=== PATIENT | female | born 1980 | race Caucasian/White ===

== ENCOUNTER 2016-07-31 23:18 | Emergency (ER) | payer SELFPAY ==
[2016-07-31 23:32] VITALS: BP 122/69
[2016-08-01] MEDS ORDERED: Ondansetron ODT TAB* 4 MG PO ONE (00:30)
[2016-08-01] MEDS ORDERED: Acetaminophen TAB* 325 MG PO ONE (00:31)
[2016-08-01] MEDS ORDERED: Ibuprofen TAB* 600 MG PO ONE (00:31)
--- NOTE | 2016-08-01 00:49 | ED ---
Latisha Mckoy Adam, scribed for Talib Franklin MD on 08/01/16 at 0033 . Influenza-Like Illness - HPI Summary HPI Summary: A 35 y/o female presents to the ED c/o viral symptoms that started yesterday. Her symptoms include headache, body aches, chills, and nausea. She denies diarrhea, vomiting, cough, or symptoms. PMHx includes asthma. FHx is positive for diabetes. Patient smokes cigarettes. - History of Current Complaint Chief Complaint: EDFluSymptoms Time Seen by Provider: 08/01/16 00:24 Hx Obtained From: Patient Onset/Duration: Gradual Onset Severity: Moderate Associated Signs & Symptoms: Myalgia, Headache - Allergy/Home Medications Allergies/Adverse Reactions: Allergies Allergy/AdvReac Type Severity Reaction Status Date / Time Penicillins Allergy Mild Rash Verified 06/12/16 08:44 PMH/Surg Hx/FS Hx/Imm Hx Endocrine/Hematology History: Denies: Hx Diabetes Cardiovascular History: Denies: Hx Congestive Heart Failure, Hx Hypertension Respiratory History: Reports: Hx Asthma History: Denies: Hx Renal Disease Musculoskeletal History: Reports: Hx Back Problems - Immunization History Date of Influenza Vaccine: fall 2012 Infectious Disease History: No Infectious Disease History: Denies: Traveled Outside the [place] in Last 30 Days - Family History Known Family History: Positive: Diabetes - Social History Occupation: Employed Full-time Alcohol Use: None Substance Use Type: Reports: None Hx Tobacco Use: Yes Smoking Status (MU): Light Every Day Tobacco Smoker Review of Systems Positive: Chills Eyes: Negative ENT: Negative Cardiovascular: Negative Respiratory: Negative Gastrointestinal: Negative Genitourinary: Negative Positive: no symptoms reported Positive: Myalgia - Body aches Skin: Negative Positive: Headache Psychological: Normal All Other Systems Reviewed And Are Negative: Yes Physical Exam - Summary Physical Exam Summary: General: Mildly ill, alert HEENT: Moist mucosa, No pharyngeal redness Neck: soft, supple, no adenopathy, no edema, no nuchal rigidity, full ROM in neck Heart: S1, S2, RRR, no murmurs, rubs, or gallops Lungs: Clear to auscultation, breathing comfortable, no wheezes or rales Abdominal: Soft, flat, nontender Extremities: No edema, no calf tenderness Neuro: Alert and oriented x 3 Psych: Logical, coherent Vital Signs On Initial Exam: Initial Vitals Temp Pulse Resp BP Pulse Ox 99.2 F 89 18 122/69 96 07/31/16 23:27 07/31/16 23:27 07/31/16 23:27 07/31/16 23:27 07/31/16 23:27 Diagnostics - Vital Signs Vital Signs Temp Pulse Resp BP Pulse Ox 07/31/16 23:27 99.2 F 89 18 122/69 96 - Laboratory Lab Statement: Any lab studies that have been ordered have been reviewed, and results considered in the medical decision making process. Flu Symptom Course/Dx - Course Assessment/Plan: About 24 hours patient has had viral syndrome with aches, myalgia, and chills. It was slow onset and does not involve meningeal signs or symptoms. There is no focal signs of bacterial infection such as pneumonia. Influenza is possible and she is still within the treatment window. We will swab her and she will start Tamiflu in the morning should it come back positive. She also needs a note for work as she is an employee of [employer]. Otherwise we will supportively treat and she will return for any worsening. - Diagnoses Differential Diagnosis/HQI/PQRI: Positive: Influenza, Pneumonia, RSV, Upper Respiratory Infection Provider Diagnoses: Viral syndrome Discharge - Discharge Plan Condition: Fair Disposition: HOME Prescriptions: Oseltamivir CAP* [Tamiflu CAP*] 75 mg PO BID #10 cap Patient Education Materials: Viral Syndrome (ED) Forms: *Work Release Referrals: [facility] [place] [facility]IAN REFERRAL [Outside] No Primary Care Phys,NOPCP [Primary Care Provider] - The documentation as recorded by the Latisha smith Adam accurately reflects the service I personally performed and the decisions made by me, Talib Franklin MD.
== END 2016-08-01 01:02 | disposition home or self-care (01) ==
LOC: ED 23:18
DX: R51 Headache (principal); M79.1 Myalgia; F17.210 Nicotine dependence, cigarettes, uncomplicated
CPT/HCPCS: 99282; A9270-GY

== ENCOUNTER 2016-08-01 12:15 | Emergency (ER) | payer SELFPAY ==
[2016-08-01 14:57] VITALS: BP 117/71
== END 2016-08-01 17:40 | disposition left against medical advice (07) ==
LOC: ED 12:15
DX: M54.9 Dorsalgia, unspecified (principal); R07.81 Pleurodynia; Z88.0 Allergy status to penicillin; Z53.21 Procedure and treatment not carried out due to patient leaving prior to being seen by health care provider
CPT/HCPCS: 99281

== ENCOUNTER 2017-06-11 15:43 | Emergency (ER) | payer SELFPAY ==
[2017-06-11] MEDS ORDERED: Ibuprofen TAB* 800 MG PO ONE (16:53)
[2017-06-11 17:19] VITALS: BP 121/81
--- NOTE | 2017-06-11 17:41 | ED ---
Back Pain - HPI Summary HPI Summary: Pt here w/ LBP x 1 week (started last Saturday). 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 Worse the following day (Saturday) so called out of work. 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 Worse Saturday so went to [facility] - was rx'd norco which she took w/ minimal relief. Admits she was advised to take NSAID's however she hasn't taken any yet as she does not like to take pills/meds in general. Has been resting back past few days and getting better/back to baseline of initial pain but does admit it's worse as day goes on when she tries to perform activities. Pain is aching and focal to back upon waking - radiates around to lateral thigh with initial activities and as she continues to push herself, pain radiates down into anterior thigh. Denies numbness, tingling, weakness. States she's here for a note for work today as she can't work like this. No PCP. - History of Current Complaint Chief Complaint: EDBackInjuryPain Stated Complaint: BACK PAIN Time Seen by Provider: 06/11/17 16:16 Hx Obtained From: Patient Pain Intensity: 4 Pain Scale Used: 0-10 Numeric - Allergies/Home Medications Allergies/Adverse Reactions: Allergies Allergy/AdvReac Type Severity Reaction Status Date / Time Penicillins Allergy Mild Rash Verified 06/11/17 15:48 PMH/Surg Hx/FS Hx/Imm Hx Previously Healthy: Yes Endocrine/Hematology History: Denies: Hx Anticoagulant Therapy, Hx Diabetes, Autoimmune Disease Cardiovascular History: Denies: Hx Congestive Heart Failure, Hx Hypertension Respiratory History: Reports: Hx Asthma History: Denies: Hx Renal Disease Musculoskeletal History: Reports: Hx Back Problems - recurrent back issues - multiple falls from horses - multiple images - Immunization History Date of Influenza Vaccine: fall 2012 Immunizations Up to Date: Yes Infectious Disease History: No Infectious Disease History: Denies: Traveled Outside the [place] in Last 30 Days - Family History Known Family History: Positive: Diabetes - Social History Occupation: Employed Part-time - medical aid Lives: With Family Alcohol Use: None Hx Substance Use: No Substance Use Type: Reports: None Hx Tobacco Use: Yes Smoking Status (MU): Current Every Day Smoker Amount Used/How Often: 1 PPD Review of Systems Constitutional: Negative Negative: Fever, Chills, Fatigue Eyes: Negative Negative: Photophobia, Blurred Vision Cardiovascular: Negative Negative: Chest Pain Respiratory: Negative Negative: Shortness Of Breath Gastrointestinal: Negative Negative: Abdominal Pain, Vomiting, Diarrhea Negative: incontinence Positive: Arthralgia, Myalgia Skin: Negative Neurological: Negative Psychological: Normal All Other Systems Reviewed And Are Negative: Yes Physical Exam Triage Information Reviewed: Yes Vital Signs On Initial Exam: Initial Vitals Temp Pulse Resp BP Pulse Ox 98.2 F 88 18 120/82 100 06/11/17 15:44 06/11/17 15:44 06/11/17 15:44 06/11/17 15:44 06/11/17 15:44 Vital Signs Reviewed: Yes Appearance: Positive: Well-Appearing, No Pain Distress, Well-Nourished Skin: Positive: Warm, Dry - no erythema, no ecchymosis, no lesions Head/Face: Positive: Normal Head/Face Inspection Eyes: Positive: EOMI ENT: Positive: Hearing grossly normal Neck: Positive: Supple Respiratory/Lung Sounds: Positive: Breath Sounds Present Cardiovascular: Positive: RRR, Pulses are Symmetrical in both Upper and Lower Extremities. Negative: Leg Edema Left, Leg Edema Right Musculoskeletal: Positive: Strength/ROM Intact, Pain @ - Lt QL TTP - spinous pp NTTP; (-) SLR Neurological: Positive: Normal, Sensory/Motor Intact - 5/5 in LE's and equal B/L , Alert, Oriented to Person Place, Time, CN Intact II-III, Reflexes Intact Psychiatric: Positive: Other - somewhat blunted but otherwise appropriate mood - [place]ine Coma Scale Coma Scale Total: 15 Diagnostics - Vital Signs Vital Signs Temp Pulse Resp BP Pulse Ox 06/11/17 17:18 97.7 F 81 17 121/81 99 06/11/17 15:44 98.2 F 88 18 120/82 100 - Laboratory Lab Statement: Any lab studies that have been ordered have been reviewed, and results considered in the medical decision making process. Back Pain Course/Dx - Course Course Of Treatment: Images were not ordered as pt reports improvement of pain since resting, has not tried NSAID'S and has had multiple low back/hip/pelvic XR /CT's in the past couple of years. XR will not change course of tx today and pt has not s/sx of cauda equina, nerve compression, etc. Advised care as in d/c and close f/u. Expressed the importance of establishing w/ PCP - provided w/ referral line and also recommended [facility] if she is still unable to establish w/ PCP. She reports she's [facility] past and knows how to make an appt there, etc. Reviewed danger s/sx of when to return to ED. Pt agrees w/ plan. - Diagnoses Provider Diagnoses: Low back strain, Lumbar radiculopathy Discharge - Discharge Plan Condition: Stable Disposition: HOME Prescriptions: Cyclobenzaprine TAB* [Flexeril 10 MG TAB*] 10 mg PO TID PRN #15 tab PRN Reason: Pain Ibuprofen TAB* [Motrin TAB* 600 MG] 600 mg PO Q6H PRN #20 tab PRN Reason: Pain Patient Education Materials: Low Back Strain (ED), Lumbar Radiculopathy (ED) Forms: *Work Release Referrals: [facility] [place] [facility]IAN REFERRAL [Outside] Additional Instructions: You appear to have a low back muscle strain also causing nerve pain. This has been treated here today with anti-inflammatory pain medication (IBUPROFEN) and a muscle relaxer was also sent to your pharmacy. You may also try acetaminophen 650mg every 6 hours for pain if ibuprofen alone does not help. Rest, ice alternating with heat, gentle stretches and topical analgesics such as biofreeze , bengay, etc may reduce pain. Please follow-up with a PCP in 1-2 weeks as you may benefit from physical therapy. If pain does not improve, you may require further imaging. Call tomorrow to establish with a PCP. *If you develop skin changes, numbness, tingling, weakness or change in bowel/ bladder habits, return to ED
== END 2017-06-11 17:21 | disposition home or self-care (01) ==
LOC: ED 15:43
DX: S33.5XXA Sprain of ligaments of lumbar spine, initial encounter (principal); M54.16 Radiculopathy, lumbar region; F17.210 Nicotine dependence, cigarettes, uncomplicated; Z88.0 Allergy status to penicillin; J45.909 Unspecified asthma, uncomplicated; X50.3XXA Overexertion from repetitive movements, initial encounter; Y93.89 Activity, other specified; Y92.9 Unspecified place or not applicable
CPT/HCPCS: 99282; A9270-GY

== ENCOUNTER 2018-04-04 20:45 | Emergency (ER) | payer SELFPAY ==
[2018-04-04] MEDS ORDERED: predniSONE TAB* 20 MG PO ONE (22:07)
[2018-04-04] MEDS ORDERED: Ketorolac INJ* 60 MG/2 ML VIAL IM ONE (22:07)
--- NOTE | 2018-04-04 22:09 | ED ---
Back Pain - HPI Summary HPI Summary: Patient complains of left lower gluteus pain radiating down left leg 3 days. Denies trauma, urinary retention, incontinence, loss of function or sensation distally. History of sciatica. Nuys any other pain, symptoms, injury. - History of Current Complaint Chief Complaint: EDBackInjuryPain Stated Complaint: LOW BACK INJURY Time Seen by Provider: 04/04/18 21:42 Hx Obtained From: Patient Onset/Duration: Sudden Onset Onset/Duration: Started Days Ago Timing: Constant Back Pain Location: Is Discrete @, Radiates To Severity Initially: Moderate Severity Currently: Moderate Pain Intensity: 5 Pain Scale Used: 0-10 Numeric Character: Throbbing Aggravating Symptom(s): Movement, Walking Alleviating Symptom(s): Rest Associated Signs And Symptoms: Positive: Negative - Allergies/Home Medications Allergies/Adverse Reactions: Allergies Allergy/AdvReac Type Severity Reaction Status Date / Time Penicillins Allergy Rash Verified 04/04/18 21:02 PMH/Surg Hx/FS Hx/Imm Hx Endocrine/Hematology History: Denies: Hx Anticoagulant Therapy, Hx Diabetes Cardiovascular History: Denies: Hx Congestive Heart Failure, Hx Hypertension Respiratory History: Reports: Hx Asthma History: Denies: Hx Renal Disease Musculoskeletal History: Reports: Hx Back Problems - recurrent back issues - multiple falls from horses - multiple images - Immunization History Date of Influenza Vaccine: fall 2012 Infectious Disease History: No Infectious Disease History: Denies: Traveled Outside the [place] in Last 30 Days - Family History Known Family History: Positive: Diabetes - Social History Alcohol Use: None Hx Substance Use: No Substance Use Type: Reports: None Hx Tobacco Use: Yes Smoking Status (MU): Current Every Day Smoker Amount Used/How Often: 1 PPD Review of Systems Constitutional: Negative Eyes: Negative ENT: Negative Cardiovascular: Negative Respiratory: Negative Gastrointestinal: Negative Genitourinary: Negative Musculoskeletal: Other Skin: Negative Neurological: Negative Psychological: Normal All Other Systems Reviewed And Are Negative: Yes Physical Exam - Summary Physical Exam Summary: No tenderness to palpation of left gluteus or left side. Positive straight leg test. Triage Information Reviewed: Yes Vital Signs On Initial Exam: Initial Vitals Temp Pulse Resp BP Pulse Ox 98.5 F 91 16 134/87 98 04/04/18 20:59 04/04/18 20:59 04/04/18 20:59 04/04/18 20:59 04/04/18 20:59 Vital Signs Reviewed: Yes Appearance: Positive: Well-Appearing Skin: Positive: Warm Head/Face: Positive: Normal Head/Face Inspection Eyes: Positive: Normal Neck: Positive: Supple Respiratory/Lung Sounds: Positive: Clear to Auscultation Cardiovascular: Positive: Normal Abdomen Description: Positive: Nontender Musculoskeletal: Positive: Normal Neurological: Positive: Normal Psychiatric: Positive: Normal AVPU Assessment: Alert - [place] Coma Scale Best Eye Response: 4 - Spontaneous Best Motor Response: 6 - Obeys Commands Best Verbal Response: 5 - Oriented Coma Scale Total: 15 Diagnostics - Vital Signs Vital Signs Temp Pulse Resp BP Pulse Ox 04/04/18 20:59 98.5 F 91 16 134/87 98 - Laboratory Lab Statement: Any lab studies that have been ordered have been reviewed, and results considered in the medical decision making process. Back Pain Course/Dx - Course Course Of Treatment: Patient complains of left lower gluteus pain radiating down left leg 3 days. Denies trauma, urinary retention, incontinence, loss of function or sensation distally. History of sciatica. Nuys any other pain, symptoms, injury. Physical exam:No tenderness to palpation of left gluteus or left side. Positive straight leg test. Toradol 60 mg IM and prednisone 60 mg by mouth here in the ED. Rx for Flexeril and prednisone. - Diagnoses Provider Diagnoses: Sciatica Discharge - Sign-Out/Discharge Documenting (check all that apply): Patient Departure - Discharge Plan Condition: Stable Disposition: HOME Prescriptions: Cyclobenzaprine TAB* [Flexeril 10 MG TAB*] 10 mg PO BID 7 Days #14 tab predniSONE TAB* [Deltasone 20 MG TAB*] 40 mg PO DAILY 5 Days #10 tab Patient Education Materials: Sciatica (ED) Forms: *Work Release Referrals: No Primary Care Phys,NOPCP [Primary Care Provider] - Additional Instructions: Follow-up with primary care. Return to the ED for any new or worsening symptoms - Billing Disposition and Condition Condition: STABLE Disposition: Home
[2018-04-04 22:21] VITALS: BP 112/74
== END 2018-04-04 22:20 | disposition home or self-care (01) ==
LOC: ED 20:45
DX: M54.30 Sciatica, unspecified side (principal); F17.200 Nicotine dependence, unspecified, uncomplicated; Z88.0 Allergy status to penicillin
CPT/HCPCS: 96372; 99281; J1885; J7512

== ENCOUNTER 2019-05-09 19:25 | Emergency (ER) | payer SELFPAY ==
--- NOTE | 2019-05-09 19:51 | ED ---
Back Pain - HPI Summary HPI Summary: Patient is a 38 y/o F w/ Hx of chronic back pain who presents to [facility] with complaints of exacerbation of her back pain that onset today, 05/09/19. She states that her pain progressively worsened throughout the day. She denies weakness/numbness, incontinence, fever, chills, hematuria, dysuria. Episodes of her back pain flare-ups occur around 2-3 times a year and last a couple of weeks. Pain is at the lower left side of her back and radiates upwards. She states that previous exacerbations of her pain occur at this same area or at the middle of her back. She reports that she has had a CT of her back previously which was negative. Patient has not taken any medications for pain. Patient states that she typically ends up in the ED when her flare-ups occur. She states that she typically is given a muscle relaxant and tries to rest as much as possible during these episodes. Certain movements and positions aggravate Sx. PMHx of HTN and diabetes is denied. PSHx is denied. Pencillin allergy is noted. She is a current tobacco smoker but denies alcohol and substance usage. Home medications and allergies are denied. - History of Current Complaint Chief Complaint: EDBackInjuryPain Stated Complaint: BACK PAIN PER PT Time Seen by Provider: 05/09/19 19:40 Hx Obtained From: Patient Onset/Duration: Lasting Hours, Still Present Onset/Duration: Started Hours Ago, Still Present Timing: Lasting Hours Back Pain Location: Is Discrete @ - lower left back, Radiates To - upwards Pain Intensity: 6 Pain Scale Used: 0-10 Numeric Aggravating Symptom(s): Movement, Other - certain positions Associated Signs And Symptoms: Positive: Other - negative - hematuria and dysuria. Negative: Fever, Weakness, Numbness, Bladder Incontinence, Bowel Incontinence - Allergies/Home Medications Allergies/Adverse Reactions: Allergies Allergy/AdvReac Type Severity Reaction Status Date / Time Penicillins Allergy Rash Verified 05/09/19 19:40 PMH/Surg Hx/FS Hx/Imm Hx Endocrine/Hematology History: Denies: Hx Anticoagulant Therapy, Hx Diabetes Cardiovascular History: Denies: Hx Congestive Heart Failure, Hx Hypertension Respiratory History: Reports: Hx Asthma History: Denies: Hx Renal Disease Musculoskeletal History: Reports: Hx Back Problems - recurrent back issues - multiple falls from horses - multiple images - Surgical History Surgery Procedure, Year, and Place: no PSHx as of 05/09/19 - Immunization History Date of Influenza Vaccine: fall 2012 Immunizations Up to Date: Yes Infectious Disease History: No Infectious Disease History: Denies: Traveled Outside the [place] in Last 30 Days - Family History Known Family History: Positive: Diabetes - Social History Alcohol Use: None Hx Substance Use: No Substance Use Type: Reports: None Hx Tobacco Use: Yes Smoking Status (MU): Current Every Day Smoker Amount Used/How Often: 1 PPD Review of Systems Negative: Fever, Chills Negative: dysuria, hematuria, incontinence Positive: Myalgia - positive - lower left back pain Negative: Weakness, Numbness All Other Systems Reviewed And Are Negative: Yes Physical Exam - Summary Physical Exam Summary: Constitutional: Well-developed, Well-nourished, Alert. (-) Distressed Skin: Warm, Dry HENT: Normocephalic; Atraumatic Eyes: Conjunctiva normal Neck: Musculoskeletal ROM normal neck. (-) JVD, (-) Stridor, (-) Tracheal deviation Cardio: Rhythm regular, rate normal, Heart sounds normal; Intact distal pulses; Radial pulses are 2+ and symmetric. (-) Murmur Pulmonary/Chest wall: Effort normal. (-) Respiratory distress, (-) Wheezes, (-) Rales Abd: Soft, (-) tenderness, (-) Distension, (-) Guarding, (-) Rebound Musculoskeletal: No midline back tenderness, limited ROM with back extension, able to ambulate on heels and toes, full strength of extremities (-) Edema Lymph: (-) Cervical adenopathy Neuro: Alert, Oriented x3 Psych: Mood and affect Normal Triage Information Reviewed: Yes Vital Signs On Initial Exam: Initial Vitals Temp Pulse Resp BP Pulse Ox 97.4 F 80 18 141/87 98 05/09/19 19:28 05/09/19 19:28 05/09/19 19:28 05/09/19 19:28 05/09/19 19:28 Vital Signs Reviewed: Yes Procedures - Sedation Patient Received Moderate/Deep Sedation with Procedure: No Diagnostics - Vital Signs Vital Signs Temp Pulse Resp BP Pulse Ox 05/09/19 19:28 97.4 F 80 18 141/87 98 - Laboratory Lab Statement: Any lab studies that have been ordered have been reviewed, and results considered in the medical decision making process. Back Pain Course/Dx - Course Course Of Treatment: Patient is here with a flareup of her chronic back pain. Patient has no reflex symptoms of back pain and does not need an emergent MRI. Patient drove here so she did not want any sedating medication. Patient was offered Tylenol and ibuprofen here but declined. Patient is discharged with Flexeril and lidocaine patches. - Diagnoses Provider Diagnoses: Lower back pain Discharge ED - Sign-Out/Discharge Documenting (check all that apply): Patient Departure - discharge - Discharge Plan Condition: Stable Disposition: HOME Prescriptions: Cyclobenzaprine TAB* [Flexeril 10 MG TAB*] 10 mg PO BID PRN #12 tab PRN Reason: back pain Lidocaine PATCH 5%* [Lidoderm 5% Patch*] 1 patch TRANSDERM DAILY 7 Days #7 patch Patient Education Materials: Chronic Back Pain (DC) Forms: *Work Release Referrals: [facility] [Outside] - 3 Days Additional Instructions: PLEASE RETURN TO EMERGENCY DEPARTMENT FOR ANY NEW OR WORSENING SYMPTOMS. Please follow up with your primary care physician. Please make all follow-ups in 1-3 days unless I advise you otherwise. Please return to ED for any fever, weakness , or difficulty going to the bathroom. - Billing Disposition and Condition Condition: STABLE Disposition: Home - Attestation Statements Document Initiated by Chacorta: Yes Documenting Scribe: KHALIF APPIAH Provider For Whom Chacorta is Documenting (Include Credential): PB HORTON MD Scribe Attestation: KHALIF Mckoy, scribed for PB HORTON MD on 05/09/19 at 2011. Scribe Documentation Reviewed: Yes Provider Attestation: The documentation as recorded by the KHALIF smith accurately reflects the service I personally performed and the decisions made by me, PB HORTON MD Status of Scribe Document: Viewed
[2019-05-09 20:17] VITALS: BP 0/0
== END 2019-05-09 20:10 | disposition home or self-care (01) ==
LOC: ED 19:25
DX: M54.5 Low back pain (principal); Z88.0 Allergy status to penicillin; F17.200 Nicotine dependence, unspecified, uncomplicated
CPT/HCPCS: 99282